=== PATIENT | male | born 1990 | race Two or more races ===

== ENCOUNTER 2017-12-15 12:12 | Day surgery (SDC) | payer SELFPAY ==
--- NOTE | 2017-12-15 13:31 | RADIOLOGY REPORT (SQ) ---
EXAM DESCRIPTION: HAND RIGHT 3 VIEWS COMPLETED DATE/TIME: 12/15/2017 1:20 pm REASON FOR STUDY: cut by skill saw COMPARISON: None. EXAM PARAMETERS: NUMBER OF VIEWS: Three views. TECHNIQUE: AP, lateral and oblique radiographic images acquired of the right hand. LIMITATIONS: None. FINDINGS: MINERALIZATION: Normal. BONES: There are comminuted fractures of the middle and distal phalanges of the right 5th digit cente red about the distal interphalangeal joint. JOINTS: No effusions. SOFT TISSUES: Laceration of the distal right 5th digit centered about the distal interphalangeal join t with punctuate radiopaque debris within the soft tissues. OTHER: No other significant finding. 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 This may reflect a combination of bone debris and foreign material. TECHNICAL DOCUMENTATION: JOB ID: [id number] [employer]- All Rights Reserved Reading location - IP/workstation name: [email or web address]
[2017-12-15] MEDS ORDERED: ONDANSETRON HCL INJ/PF 4 MG/2 ML SDV IV ONE (14:19)
[2017-12-15] MEDS ORDERED: MORPHINE SULFATE 10 MG/ML INJ IV ONE (14:19)
[2017-12-15] MEDS ORDERED: CEFTRIAXONE INJ 1000 MG VIAL IV ONE (14:39)
[2017-12-15] MEDS ORDERED: HYDROMORPHONE HCL INJ/PF 2 MG/ML AMPULE IV ONE (14:40)
--- NOTE | 2017-12-15 16:34 | ER Document Report ---
ED Hand/Wrist Injury - General Chief Complaint: Finger Injury Stated Complaint: FINGER INJURY Time Seen by Provider: 12/15/17 14:06 Notes: Patient sustained a laceration of his right fifth finger on his nondominant hand from a skill saw about 11 AM this morning. No other injuries or complaints. No other significant history. Complaining of severe pain. TRAVEL OUTSIDE OF THE U.S[place] IN LAST 30 DAYS: No - Related Data Allergies/Adverse Reactions: No Known Allergies Allergy (Verified 12/15/17 12:19) Past Medical History - Social History Smoking Status: Current Every Day Smoker Family History: Reviewed & Not Pertinent Patient has suicidal ideation: No Patient has homicidal ideation: No - Immunizations Hx Diphtheria, Pertussis, Tetanus Vaccination: - unk Review of Systems - Review of Systems Notes: REVIEW OF SYSTEMS: CONSTITUTIONAL : Denies fever. EENT: Denies eye, ear, nose or mouth or throat pain or other symptoms. CARDIOVASCULAR: Denies chest pain. RESPIRATORY: Denies cough, chest congestion, or shortness of breath. GASTROINTESTINAL: Denies abdominal pain or nausea, vomiting, or diarrhea. GENITOURINARY: Denies difficulty or painful urinating, urinary frequency, blood in urine. MUSCULOSKELETAL: Denies back or neck pain. See HPI. SKIN: Denies rash or skin lesions. See HPI. NEUROLOGICAL: Denies LOC or altered mental status. Denies headache. Denies sensory loss or motor deficits. ALL OTHER SYSTEMS REVIEWED AND NEGATIVE. Physical Exam - Vital signs Vitals: Temp Pulse Resp BP Pulse Ox 98.1 F 66 18 130/74 H 99 12/15/17 12:23 12/15/17 12:23 12/15/17 12:23 12/15/17 12:23 12/15/17 12:23 Interpretation: Normal - Notes Notes: PHYSICAL EXAMINATION: GENERAL: Well-appearing, in no acute distress. Right hand with bloody bandage. Vital signs are all essentially normal. HEAD: Atraumatic, normocephalic. EYES: Pupils equal round and reactive to light, extraocular movements intact. ENT: oropharynx clear without exudates. Moist mucous membranes. NECK: Normal range of motion, supple. LUNGS: Breath sounds clear and equal bilaterally. HEART: Regular rate and rhythm without murmurs. ABDOMEN: Soft, nontender. No guarding or rebound. No masses. BACK: No tenderness throughout entire back. EXTREMITIES: Patient has a deep laceration over the palmar aspect of the right fifth finger DIP. He has a laceration that starts at the base of the little finger, radial side and goes down and crosses over the middle palmar aspect of the fifth finger to an apex near the proximal nail on the ulnar side of the finger and then the laceration goes back somewhat dorsally to about the mid finger, completing a rather long narrow the shaped laceration. The distal pad of the distal segment of the little finger appears to be pale and not normal color like the other fingers and rest of the hand. Patient has no feeling from the DIP joint distally. NEUROLOGICAL: Normal speech, normal gait. Normal sensory, motor, and reflex exams. Awake, alert, and oriented x3. Cranial nerves normal. PSYCH: Normal mood, normal affect. SKIN: Warm, dry, no rashes. Course - Re-evaluation Re-evalutation: 12/15/17 16:33 I have spoken to the hand surgeon senior environmental consultant at [facility], Dr. Qureshi, who says that he does not do hand work, if there is a vascular component to the injury, but is on the schedule for technical reasons. I still have a call out to the vascular hand surgeon in [place], but have not had a call back from him yet. I never received a call back from the vascular hand surgeon whom I tried to reach, Dr. Mares. Transfer center in [place] recommended I try to do core [place]. I called [facility] and spoke with a Dr. Adamson who indicated that [place] is on divert so he cannot accept the patient but told me that he did not feel that the patient merited a vascular surgeon based upon my description of his wounds. Later, I was able to contact the hand senior environmental consultant for [facility] and likewise, he did not feel from a description that vascular surgery was necessary for this wound because of its distal location and the extensiveness of the injuries likely to result in loss of the tip of the finger anyway. Re-contacted Dr. Pimentel, our orthopedist senior environmental consultant, and he is going to come take the patient to the OR. - Vital Signs Vital signs: Temp Pulse Resp BP Pulse Ox 97.8 F 79 15 123/73 100 12/15/17 18:18 12/15/17 18:28 12/15/17 18:28 12/15/17 18:28 12/15/17 18:28 - Diagnostic Test Radiology results interpreted by me: 12/15/17 18:51 X-rays of the patient's finger shows a deep laceration in the skin on the palmar aspect of the DIP joint of the fifth finger. Both the distal middle phalanx and the proximal distal phalanx, at that site is fractured with multiple small pieces of bone in the tissues. Discharge - Discharge Clinical Impression: Laceration of little finger Condition: Stable Admitting Provider: Dr. Pimentel Unit Admitted: OR
[2017-12-15] MEDS ORDERED: ONDANSETRON HCL INJ/PF 4 MG/2 ML SDV ONE (16:53)
[2017-12-15] MEDS ORDERED: PROPOFOL INJ 200 MG/20 ML VIAL IV ONE (16:53)
[2017-12-15] MEDS ORDERED: HYDROMORPHONE HCL INJ/PF 2 MG/ML AMPULE ONE (16:53)
[2017-12-15] MEDS ORDERED: EPHEDRINE SULFATE INJ 50 MG/1 ML AMPULE ONE (16:53)
[2017-12-15] MEDS ORDERED: BACITRACIN INJ 50,000 UNIT VIAL ONE ×2 (17:04→17:28)
[2017-12-15] MEDS ORDERED: LIDOCAINE 1% INJ-PF (10 MG/ML) 30 ML SDV ONE (17:28)
[2017-12-15] MEDS ORDERED: BUPIVACAINE HCL 0.5 % INJ/PF 30 ML SDV ONE (17:28)
--- NOTE | 2017-12-15 17:31 | PDOC H&P ---
History of Present Illness History of Present Illness: KAMALJIT CASTELAN JR is a 27 year old male The patient is a 27-year-old [id number] male who presents with a skill saw injury to the right small finger. Past Medical History Cardiac Medical History: Reports: None Past Surgical History Past Surgical History: Reports: None Social History Information Source: Patient, [facility] Records Smoking Status: Unknown if Ever Smoked Family History Parental Family History Reviewed: No Children Family History Reviewed: No Sibling(s) Family History Reviewed.: No Medication/Allergy Home Medications: Cephalexin Monohydrate [Keflex 500 mg Capsule] 500 mg PO QID #20 capsule Oxycodone HCl/Acetaminophen [Percocet 5-325 mg Tablet] 1 tab PO Q6 #25 tab 12/15 Allergies/Adverse Reactions: No Known Allergies Allergy (Verified 12/15/17 12:19) Review of Systems All systems: as per [facility] Physical Exam Physical Exam: The patient is a young male accompanied by his significant other. He has tremors that I think arise from anxiety. The only injuries to the right hand. There is a volar injury that begins over the proximal phalanx and extends in a complex fashion and out to the distal phalanx. The subungual region has reasonable capillary refill. The tuft appears to be avascular. Sensory examination is difficult to assess because of the patient's anxiety and guarding. General appearance: PRESENT: mild distress, well-developed, well-nourished Head exam: PRESENT: normocephalic Respiratory exam: PRESENT: unlabored Cardiovascular exam: PRESENT: RRR Pulses: PRESENT: normal radial pulses Vascular exam: PRESENT: other - Subungual capillary refill is present on the right small finger GI/Abdominal exam: PRESENT: soft Rectal exam: PRESENT: deferred Extremities exam: PRESENT: other - As above. Complex laceration to the volar surface of the nondominant right small finger beginning in the region of the proximal phalanx and extending out to the distal phalanx. Neurological exam: PRESENT: alert, awake, oriented to person, oriented to place , oriented to time, oriented to situation, motor sensory deficit - ?? Psychiatric exam: PRESENT: anxious Skin exam: PRESENT: dry, intact, warm. ABSENT: cyanosis, rash Results Status: Imported from PACS Assessment & Plan - Diagnosis (1) Laceration of finger Qualifiers: Qualifiers: initial encounter Qualifiers: little finger Qualifiers: without damage Qualifiers: unspecified Qualifiers: right Qualifiers: [id number] Qualifiers: [id number] Is this a current diagnosis for this admission?: Yes Plan: 27-year-old male with a right small finger laceration on the volar surface beginning of the proximal phalanx extending to the distal phalanx. Involvement of tendon structures and/or neurovascular structures are uncertain at this point. Plan will be for irrigation debridement exploration of the wound and limited closure. If tendon lacerations and/or neurovascular lacerations are identified these can be addressed later. There is some question about the vascular supply to the tuft of the finger and whether or not this will survive. All this discussed with the patient and his significant other. - Time Time Spent: 50 to 70 Minutes Critical Time spent with patient: 15-24 minutes Anticipated discharge: Home Within: within 24 hours
[2017-12-15] MEDS ORDERED: DIPHENHYDRAMINE HCL 50 MG/ML VIAL IV PRN (17:55)
[2017-12-15] MEDS ORDERED: MEPERIDINE HCL/PF INJ 25 MG/1 ML DISP.SYRIN IV PRN (17:55)
[2017-12-15] MEDS ORDERED: FENTANYL CITRATE INJ/PF 100 MCG/2 ML AMPUL IV PRN ×3 (17:55)
--- NOTE | 2017-12-15 18:11 | Discharge Summary ---
Discharge Summary (SDC) - Discharge Final Diagnosis: Open fracture right small finger Date of Surgery: 12/15/17 Discharge Date: 12/15/17 Condition: Stable Discharge Diet: As Tolerated, Regular Discharge Activity: Balance Activity w/Rest Home Care Assistance: None Needed Report the Following to Your Physician Immediately: Shortness of Breath, Fever over 101 Degrees, Drainage-Foul Smelling
--- NOTE | 2017-12-15 18:13 | Operative Report ---
Operative Report DATE OF SURGERY: 12/15/17 PREOPERATIVE DIAGNOSIS: Complex laceration and open fracture right small finger OPERATION: Irrigation debridement complex wound closure SURGEON: LUCILLE ESCOBAR ANESTHESIA: GA TISSUE REMOVED OR ALTERED: Skin, fascial tissue, adipose tissue to pathology ESTIMATED BLOOD LOSS: Minimal PROCEDURE: With the patient on the operative table the right upper extremity is pre- scrubbed and then prepped and draped in a sterile fashion. The wound edges are explored and debrided meticulously. Neurovascular bundle along the radial aspect of the small finger appears to extend out to the PIP joint but then is not identifiable after that. Laterally the neurovascular bundles difficult call to assess. Both the FDS and FDP are intact. He with normal saline containing bacitracin and bulb lavage. The skin edges are then approximated using interrupted nylon. A sterile compressive dressing is applied and the patient's return to PACU in satisfactory condition.
[2017-12-15] MEDS ORDERED: OXYCODONE-ACETAMINOPHEN 5-325 MG TABLET PO PRN (18:53)
[2017-12-15] MEDS ORDERED: METOCLOPRAMIDE HCL INJ/PF 10 MG/2 ML SDV ONE (19:43)
[2017-12-15 20:24] VITALS: BP 106/64
== END 2017-12-15 20:22 | disposition home or self-care (01) ==
LOC: ER 12:12 → OROUT 17:00
PROVIDERS: ATTEND Orthopaedic Surgery
DX: S62.636B Displaced fracture of distal phalanx of right little finger, initial encounter for open fracture (principal); S62.616B Displaced fracture of proximal phalanx of right little finger, initial encounter for open fracture; W31.2XXA Contact with powered woodworking and forming machines, initial encounter; F17.210 Nicotine dependence, cigarettes, uncomplicated
CPT/HCPCS: 99285; 96375; 96365; 73130; 26080; J3490 ×3; J2765; J2270; J1170; J0696; J2405; J2704; 01810

== ENCOUNTER 2018-01-04 05:57 | Day surgery (SDC) | payer OTHER ==
[~2018-01-04 05:57] MED LIST: CEFAZOLIN 2 GM/D5W RTU 2 GM/50 ML RTUPB IV ONE; CEFAZOLIN 2 GM/D5W RTU 2 GM/50 ML RTUPB IV PRN
[2018-01-04 06:39] LABS: ABSOLUTE BASOPHILS # (AUTO) 0.1 10^3/uL (0.0-0.2); ABSOLUTE EOSINOPHILS # (AUTO) 0.1 10^3/uL (0.0-0.6); ABSOLUTE MONOCYTES (AUTO) 0.5 10^3/uL (0.1-1.4); ABSOLUTE NEUT (AUTO) 4.6 10^3/uL (1.7-8.2); BASOPHILS % (AUTO) 0.9 % (0-2); EOSINOPHILS % (AUTO) 1.2 % (0-6); HEMATOCRIT 42.6 % (37.9-51.0); HEMOGLOBIN 14.4 g/dL (13.5-17.0); LYMPHOCYTES % (AUTO) 27.2 % (13-45); MEAN CORPUSCULAR HEMOGLOBIN 30.4 pg (27.0-33.4); MEAN CORPUSCULAR HGB CONC 33.9 g/dL (32.0-36.0); MEAN CORPUSCULAR VOLUME 90 fl (80-97); MONOCYTES % (AUTO) 7.5 % (3-13); PLATELET COUNT 249 10^3/uL (150-450); RED BLOOD COUNT 4.75 10^6/uL (4.35-5.55); RED CELL DISTRIBUTION WIDTH 13.1 % (11.5-14.0); SEGMENTED NEUTROPHILS % (AUTO) 63.2 % (42-78); TOTAL CELLS COUNTED % (AUTO) 100 %; WHITE BLOOD COUNT 7.2 10^3/uL (4.0-10.5)
[2018-01-04] MEDS ORDERED: LIDOCAINE 0.5% INJ-PF (5 MG/ML) 50 ML SDV ONE (07:18)
[2018-01-04] MEDS ORDERED: FENTANYL CITRATE INJ/PF 100 MCG/2 ML AMPUL ONE (07:38)
[2018-01-04] MEDS ORDERED: PROPOFOL INJ 200 MG/20 ML VIAL IV ONE (07:38)
[2018-01-04] MEDS ORDERED: MIDAZOLAM 2 MG/2 ML INJ ONE (07:38)
[2018-01-04] MEDS ORDERED: ACETAMINOPHEN 1,000 MG/100 ML RTUPB IV ONE (07:38)
[2018-01-04] MEDS ORDERED: BUPIVACAINE HCL 0.5 % INJ/PF 30 ML SDV ONE (07:56)
[2018-01-04] MEDS ORDERED: OXYCODONE-ACETAMINOPHEN 5-325 MG TABLET PO PRN ×2 (08:09)
[2018-01-04] MEDS ORDERED: ONDANSETRON HCL INJ/PF 4 MG/2 ML SDV IV PRN (08:09)
[2018-01-04] MEDS ORDERED: DIPHENHYDRAMINE HCL 50 MG/ML VIAL IV PRN (08:09)
[2018-01-04] MEDS ORDERED: PROMETHAZINE HCL INJ 25 MG/1 ML VIAL IV PRN ×2 (08:09)
[2018-01-04] MEDS ORDERED: FENTANYL CITRATE INJ/PF 100 MCG/2 ML AMPUL IV PRN ×3 (08:09)
[2018-01-04] MEDS ORDERED: MORPHINE SULFATE 10 MG/ML INJ IV PRN (08:09)
[2018-01-04] MEDS ORDERED: MEPERIDINE HCL/PF INJ 25 MG/1 ML DISP.SYRIN IV PRN (08:09)
--- NOTE | 2018-01-04 08:25 | Discharge Summary ---
Discharge Summary (SDC) - Discharge Final Diagnosis: Right distal small finger ischemic necrosis Date of Surgery: 01/04/18 Discharge Date: 01/04/18 Condition: Good Treatment or Instructions: Elevate right upper extremity, keep the dressing clean dry and intact. Prescriptions: Oxycodone HCl/Acetaminophen [Percocet 5-325 mg Tablet] 1 tab PO Q6 PRN #40 tablet PRN Reason: Discharge Diet: As Tolerated, Regular Respiratory Treatments at Home: Deep Breathing/Coughing Discharge Activity: Activity As Tolerated Home Care Assistance: None Needed Report the Following to Your Physician Immediately: Shortness of Breath, Fever over 101 Degrees, Drainage-Foul Smelling
--- NOTE | 2018-01-04 08:27 | Operative Report ---
Operative Report DATE OF SURGERY: 01/04/18 PREOPERATIVE DIAGNOSIS: Right small finger distal ischemic necrosis OPERATION: Right small finger PIP disarticulation SURGEON: LUCILLE ESCOBAR ANESTHESIA: LMAC TISSUE REMOVED OR ALTERED: Distal right small finger to pathology ESTIMATED BLOOD LOSS: Minimal PROCEDURE: With the patient on the operating table a digital block is placed in the right small finger. The hand is then pre-scrubbed using chlorhexidine scrub brush. Its then prepped and draped using chlorhexidine prep stick. A fishmouth incision is made proximal to the ischemic portion of the digit around the PIP joint. Sharp dissection was carried incision down to the PIP joint. This was disarticulated. The wound is irrigated. Hemostasis obtained with bipolar cautery. The wound is then reapproximated with interrupted 4-0 nylon. A sterile compressive dressing is applied and the patient's return to PACU in satisfactory condition.
[2018-01-04] MEDS: FENTANYL CITRATE INJ/PF 100 MCG/2 ML AMPUL ONE ×2 (08:42→08:46)
[2018-01-04] MEDS ORDERED: OXYCODONE-ACETAMINOPHEN 5-325 MG TABLET ONE (09:20)
[2018-01-04 12:07] VITALS: BP 120/65
== END 2018-01-04 10:20 | disposition home or self-care (01) ==
LOC: OROUT 05:57
PROVIDERS: ATTEND Orthopaedic Surgery
PROC: 0X6V0Z3 Detachment at Right Little Finger, Low, Open Approach (ICD-10-PCS; principal; 2018-01-04 08:15)
DX: M87.9 Osteonecrosis, unspecified (principal)
CPT/HCPCS: 36415; 85025; 88305 ×2; 88311; 26951; J2250; J3490 ×2; J3010; J2704; J0690; J0131; 1830

== ENCOUNTER 2019-11-29 07:29 | Emergency (ER) | payer SELFPAY ==
[2019-11-29 07:42] VITALS: BP 126/79
--- NOTE | 2019-11-29 08:07 | ER Document Report ---
HPI - HPI Time Seen by Provider: 11/29/19 08:06 Pain Level: Denies Context: Patient is a 22-year-old male with no known past medical history who presents emergency department wanting to be tested for COVID-19. Patient states that a coworker tested positive for COVID-19. The past 4 days, the patient has had diarrhea, congestion, and one bout of vomiting. States that the symptoms are not that bad. States that his boss wants him tested for COVID-19. Patient also reports that he felt "feverish" 1 day, but felt better after taking Motrin. Denies any melena stool. - ROS Systems Reviewed and Negative: Yes All other systems reviewed and negative - CONSTITUTIONAL Constitutional: REPORTS: Fever - Subjective - EENT EENT: REPORTS: Nasal Drainage-Clear, Congestion. DENIES: Sore Throat, Ear Pain, Nasal Drainage-Purulent, Eye problems - NEURO Neurology: DENIES: Headache, Weakness - CARDIOVASCULAR Cardiovascular: DENIES: Chest pain - RESPIRATORY Respiratory: REPORTS: Coughing - GASTROINTESTINAL Gastrointestinal: REPORTS: Patient vomiting - One-time, Diarrhea. DENIES: Abdominal Pain, Nausea - URINARY Urinary: DENIES: Dysuria - MUSCULOSKELETAL Musculoskeletal: DENIES: Extremity pain - DERM Skin Color: Normal Skin Problems: None Past Medical History - Social History Smoking Status: Current Every Day Smoker Chew tobacco use (# tins/day): No Frequency of alcohol use: Occasional Drug Abuse: None Family History: Reviewed & Not Pertinent Patient has homicidal ideation: No - Past Medical History Cardiac Medical History: Denies: Hx Coronary Artery Disease, Hx Heart Attack, Hx Hypertension Pulmonary Medical History: Denies: Hx Asthma, Hx Bronchitis, Hx COPD, Hx Pneumonia Neurological Medical History: Denies: Hx Cerebrovascular Accident, Hx Seizures Renal/ Medical History: Denies: Hx Peritoneal Dialysis Musculoskeletal Medical History: Denies Hx Arthritis - Immunizations Hx Diphtheria, Pertussis, Tetanus Vaccination: Yes Vertical Provider Document - CONSTITUTIONAL Agree With Documented VS: Yes Exam Limitations: No Limitations General Appearance: No Apparent Distress - INFECTION CONTROL TRAVEL OUTSIDE OF THE [place] IN LAST 30 DAYS: No - HEENT HEENT: Atraumatic, Normocephalic, PERRLA. negative: Conjuctival Injection, Pharyngeal Exudate, Pharyngeal Tenderness, Pharyngeal Erythema Notes: Clear rhinorrhea noted - NECK Neck: Normal Inspection - RESPIRATORY Respiratory: Breath Sounds Normal, No Respiratory Distress - CARDIOVASCULAR Cardiovascular: Regular Rate, Regular Rhythm Pulses: Normal: Radial - GI/ABDOMEN Gastrointestinal: Abdomen Soft, Abdomen Non-Tender - MUSCULOSKELETAL/EXTREMETIES Musculoskeletal/Extremeties: FROM - NEURO Level of Consciousness: Awake, Alert, Appropriate Motor/Sensory: No Motor Deficit, No Sensory Deficit - DERM Integumentary: Warm, Dry, No Rash Course - Re-evaluation Re-evalutation: 11/29/19 08:06 The patient was evaluated during the global COVID-19 pandemic and that diagnosis was suspected/considered upon their initial presentation. Their evaluation, treatment and testing was consistent with current guidelines for patients who present with complaints or symptoms that may be related to COVID-19. - Vital Signs Vital signs: Temp Pulse Resp BP Pulse Ox 97.8 F 61 20 126/79 H 98 11/29/19 07:37 11/29/19 07:37 11/29/19 07:37 11/29/19 07:37 11/29/19 07:37 Discharge - Discharge Clinical Impression: Suspected COVID-19 virus infection Condition: Stable Disposition: HOME, SELF-CARE Instructions: COVID-19 Guidance for Persons Under Investigation Additional Instructions: As a person under investigation for COVID-19, the [place] Department of Health and Human Services (division on public health) advises you to adhere to the following guidance until your test results are reported to you. If your test result is positive, you will receive additional information from your provider and your local health department at that time. Remain at home until you are cleared by the health provider or public health authorities. Keep a log of visitors to your home, notify any visitors to your home of your isolation status. If you plan to move to a new address or leave the [facility], notify the local health department in your County. Call your Doctor or seek care if you have an urgent medical need. Before seeking medical care, call him to get instructions from the provider before arriving at the medical office, clinic, or hospital. Notify them that you are being tested for the virus (COVID-19) so that arrangements can be made, as necessary, to prevent transmission to others in the healthcare setting. Next, notify the local health department in your county. For the Zofran, take 1 tablet every 4-6 hours as needed for nausea or vomiting.
[2019-11-29] MEDS ORDERED: ONDANSETRON ODT 4 MG TAB (6 TAB/ER DISP) PO PRN (08:37)
== END 2019-11-29 09:03 | disposition home or self-care (01) ==
LOC: ER 07:29
DX: R50.9 Fever, unspecified (principal); R19.7 Diarrhea, unspecified; R05 Cough; R09.81 Nasal congestion; R09.89 Other specified symptoms and signs involving the circulatory and respiratory systems; Z20.828 Contact with and (suspected) exposure to other viral communicable diseases; F17.200 Nicotine dependence, unspecified, uncomplicated
CPT/HCPCS: 99283; 87635; C9803

== ENCOUNTER 2019-12-09 10:49 | Emergency (ER) | payer SELFPAY ==
[2019-12-09] MEDS ORDERED: PREDNISONE 20 MG TABLET PO ONE (11:09)
[2019-12-09] MEDS ORDERED: NAPROXEN 250 MG TABLET PO ONE (11:10)
--- NOTE | 2019-12-09 11:10 | ER Document Report ---
HPI - HPI Patient complains to provider of: cough, ST Time Seen by Provider: 12/09/19 11:04 Notes: 29-year-old male to the emergency department with complaints of at least 2 weeks of cough, sore throat, nasal congestion. He states that he was seen here in November 28 for the same complaints and tested negative for coronavirus. He states his symptoms continue. He is not been taking anything for symptoms. Denies any fevers or chills. States his throat hurts predominantly when he is swallowing. He denies any sick contacts. He does smoke. States his most significant symptom is a sore throat. - CONSTITUTIONAL Constitutional: DENIES: Fever, Chills - EENT EENT: REPORTS: Sore Throat, Congestion. DENIES: Ear Pain - NEURO Neurology: DENIES: Headache, Weakness, Vision blurred, Dizzinesss / Vertigo - CARDIOVASCULAR Cardiovascular: DENIES: Chest pain - RESPIRATORY Respiratory: REPORTS: Coughing. DENIES: Trouble Breathing - GASTROINTESTINAL Gastrointestinal: DENIES: Abdominal Pain, Nausea, Patient vomiting, Diarrhea - MUSCULOSKELETAL Musculoskeletal: DENIES: Extremity pain, Back Pain, Neck Pain, Swelling - DERM Skin Color: Normal Skin Problems: None Past Medical History - General Information source: Patient - Social History Smoking Status: Current Every Day Smoker Frequency of alcohol use: Social Drug Abuse: None Family History: Reviewed & Not Pertinent - Past Medical History Cardiac Medical History: Denies: Hx Coronary Artery Disease, Hx Heart Attack, Hx Hypertension Pulmonary Medical History: Denies: Hx Asthma, Hx Bronchitis, Hx COPD, Hx Pneumonia Neurological Medical History: Denies: Hx Cerebrovascular Accident, Hx Seizures Renal/ Medical History: Denies: Hx Peritoneal Dialysis Musculoskeletal Medical History: Denies Hx Arthritis - Immunizations Hx Diphtheria, Pertussis, Tetanus Vaccination: Yes Vertical Provider Document - CONSTITUTIONAL Exam Limitations: No Limitations General Appearance: WD/WN, No Apparent Distress - INFECTION CONTROL TRAVEL OUTSIDE OF THE [place] IN LAST 30 DAYS: No - HEENT HEENT: Atraumatic, Normocephalic, PERRLA Notes: TMs are clear bilaterally. There is erythema in the posterior oropharynx without exudate. There is no evidence for peritonsillar abscess. There is no drooling or muffled voice. There is no Pascual's angina. Airway is grossly patent. There is no tender lymphadenopathy. - NECK Neck: Normal Inspection, Supple - RESPIRATORY Respiratory: Breath Sounds Normal, No Respiratory Distress. negative: Rales, Rhonchi, Wheezing - CARDIOVASCULAR Cardiovascular: Regular Rate, Regular Rhythm, No Murmur - GI/ABDOMEN Gastrointestinal: Abdomen Soft, Abdomen Non-Tender, No Organomegaly - MUSCULOSKELETAL/EXTREMETIES Musculoskeletal/Extremeties: MAEW, FROM, Non-Tender - NEURO Level of Consciousness: Awake, Alert, Appropriate Motor/Sensory: No Motor Deficit, No Sensory Deficit - DERM Integumentary: Warm, Dry, No Rash Course - Re-evaluation Re-evalutation: 12/09/19 Impression: Viral upper respiratory syndrome. No pneumonia, no strep, no mono. Had a negative Covid on November 28. Patient is nontoxic in appearance. Will send home with steroid to help calm down his throat and his chest as well as cough medicine. Patient agrees with the plan. Encouraged to return if worse. - Vital Signs Vital signs: Temp Pulse Resp BP Pulse Ox 97.6 F 68 18 134/74 H 97 12/09/19 10:53 12/09/19 10:53 12/09/19 10:53 12/09/19 10:53 12/09/19 10:53 Discharge - Discharge Clinical Impression: Cough Upper respiratory infection Qualifiers: URI type: unspecified URI Qualified Code(s): J06.9 - Acute upper respiratory infection, unspecified Pharyngitis Qualifiers: Pharyngitis/tonsillitis etiology: unspecified etiology Qualified Code(s): J02.9 - Acute pharyngitis, unspecified Condition: Stable Disposition: HOME, SELF-CARE Instructions: Upper Respiratory Illness ([facility]) Additional Instructions: Today your strep test was negative as well as your mono screen. Your chest x- ray was clear with no pneumonia. This is likely a viral upper respiratory syndrome. It needs to predominantly run its course. He will be sent home with some steroids to help calm down the sore throat and your cough. As well as cough medicine. Return if worsening symptoms. Follow-up with primary care. Prescriptions: Benzonatate [Tessalon Perles 100 mg Capsule] 100 mg PO Q8HP PRN #40 capsule PRN Reason: Prednisone [Deltasone 20 mg Tablet] 40 mg PO DAILY #10 tablet Forms: Return to Work Referrals: [facility] [Provider Group] - Follow up as needed [facility] [Provider Group] - Follow up as needed
--- NOTE | 2019-12-09 12:07 | RADIOLOGY REPORT (SQ) ---
EXAM DESCRIPTION: CHEST 2 VIEWS IMAGES COMPLETED DATE/TIME: 12/09/2019 11:52 am REASON FOR STUDY: cough for several weeks, covid neg 11/29/19 COMPARISON: None. EXAM PARAMETERS: NUMBER OF VIEWS: two views TECHNIQUE: Digital Frontal and Lateral radiographic views of the chest acquired. RADIATION DOSE: NA LIMITATIONS: none FINDINGS: LUNGS AND PLEURA: No opacities, masses or pneumothorax. No pleural effusion. MEDIASTINUM AND HILAR STRUCTURES: No masses or contour abnormalities. HEART AND VASCULAR STRUCTURES: Heart normal size. No evidence for failure. BONES: No acute findings. HARDWARE: None in the chest. OTHER: No other significant finding. IMPRESSION: NO ACUTE RADIOGRAPHIC FINDING IN THE CHEST. TECHNICAL DOCUMENTATION: JOB ID: [id number] 2010 [employer]- All Rights Reserved Reading location - IP/workstation name: [email or web address]
[2019-12-09 12:30] VITALS: BP 135/77
== END 2019-12-09 12:26 | disposition home or self-care (01) ==
LOC: ER 10:49
DX: J06.9 Acute upper respiratory infection, unspecified (principal); R05 Cough; J02.9 Acute pharyngitis, unspecified; R09.81 Nasal congestion; F17.200 Nicotine dependence, unspecified, uncomplicated
CPT/HCPCS: 99284; 36415; 87070; 87880; 86308; 71046; J7512

== ENCOUNTER 2020-01-21 07:57 | Emergency (ER) | payer SELFPAY ==
--- NOTE | 2020-01-21 09:59 | RADIOLOGY REPORT (SQ) ---
EXAM DESCRIPTION: SHOULDER RIGHT 2 OR MORE VIEWS IMAGES COMPLETED DATE/TIME: 01/21/2020 9:19 am REASON FOR STUDY: possible shoulder injury COMPARISON: None. NUMBER OF VIEWS: Three views. TECHNIQUE: Internal rotation, external rotation, and Y view images acquired of the right shoulder. LIMITATIONS: None. FINDINGS: MINERALIZATION: Normal. BONES: No acute fracture. No worrisome bone lesions. JOINTS: No dislocation. VISUALIZED LUNGS AND RIBS: No pneumothorax. No rib fracture. SOFT TISSUES: No radiopaque foreign body. OTHER: No other significant finding. IMPRESSION: NEGATIVE STUDY OF THE RIGHT SHOULDER. NO RADIOGRAPHIC EVIDENCE OF ACUTE INJURY. TECHNICAL DOCUMENTATION: JOB ID: [id number] 2010 [employer]- All Rights Reserved Reading location - IP/workstation name: [email or web address]
--- NOTE | 2020-01-21 10:30 | ER Document Report ---
ED General - General Chief Complaint: Shoulder Injury Stated Complaint: SHOULDER PAIN TRAVEL OUTSIDE OF THE [place] IN LAST 30 DAYS: No - HPI Notes: Chief Complaint: Right shoulder pain Historian: History obtained from patient HPI: This is a 21-year-old male presents to the ED complaining of right shoulder pain x3 days. Denies any specific injury or trauma. 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 Pain is nonradiating and worse with movement. Denies range of motion or sensory deficit to right upper extremity. No treatments tried. ROS: Constitutional: no fevers. HEENT: no WEN, sore throat, or vision changes. CV: no chest pain or palpitations. Resp: no cough or SOB. GI: no abdominal pain, or n/v/d. : no dysuria, hematuria, or incont. MSK: right shoulder pain Skin: no rashes or itching. Neuro: no seizures, weakness, numbness, or confusion. Hematological: no ecchymosis or easy bleeding. Endocrine: no polyuria/polydipsia, no heat/cold intolerance. Psych: no SI/HI, AH/VH or memory loss. PMHx: Reviewed and agree as charted by RN. PSHx: Reviewed and agree as charted by RN. SOCHx: Reviewed and agree as charted by RN. FHX: No significant familial comorbid conditions directly related to patient complaint Current Medications: Reviewed and agree with the patient medications as charted by the RN. Allergies: Reviewed and agree with the listed allergies as charted by the RN Physical Exam: Vitals: Reviewed in chart as documented by RN. General: Alert and in NAD. Head: Normocephalic; atraumatic Eyes: PERRLA, Conjunctivae clear sclerae non-icteric bilat ENT: no soft palate swelling or uvular deviation Neck: trachea midline, no unilateral swelling/tenderness/lymphadenopathy CV: RRR, no M/R/G; symmetric distal pulses Resp: respirations even and unlabored, CTA bilat. GI: abd soft and nondistended. NTTP. normal BS. no masses/HSM. no CVAT bilat MSK: RUE- shoulder- tender to AC joint w/ mild swelling, no erythema or deformity. no subacromial tenderness. no SITS muscle tenderness. No shoulder joint swelling, deformity, or erythema. FROM of shoulder. inc pain w/ extension. able to abduct beyond 90 degrees. neg drop arm radial pulse 2+ cap refill <3 sec sensory intact distally. Skin: warm, moist, good turgor. no rash/lesions Neuro: Alert and oriented X 4. following CN 2-12 intact. no unilateral weakness/numbness Psych: No SI/HI or AH/VH. ED Results: Medical Decision-Making: Medical Decision-making/Differential Diagnosis: Consider various etiologies including but not limited to skin/soft tissue structure injury, MSK injury, strain/sprain, fracture, dislocation, bursitis, tendonitis, contusion, ect Plan- shoulder XR. imaging reviewed and negative. pts symptoms most likely related to AC sprain/AC inflammation vs bursitis. no signs of fracture/dislocation or septic joint. pt is NV intact. will d/c home w/ steroids and anti inflamm. no heavy lifting w/ RUE, encouraged PROM. ortho referral given for f/u. return factors discussed. This course of action was discussed with the patient and/or family. They were amenable to this, verbalized understanding, and were without further questions. - Related Data Allergies/Adverse Reactions: No Known Allergies Allergy (Verified 01/21/20 08:53) Past Medical History - Social History Smoking Status: Current Every Day Smoker Chew tobacco use (# tins/day): No Frequency of alcohol use: None Drug Abuse: None Family History: Reviewed & Not Pertinent Patient has homicidal ideation: No - Past Medical History Cardiac Medical History: Denies: Hx Coronary Artery Disease, Hx Heart Attack, Hx Hypertension Pulmonary Medical History: Denies: Hx Asthma, Hx Bronchitis, Hx COPD, Hx Pneumonia Neurological Medical History: Denies: Hx Cerebrovascular Accident, Hx Seizures Renal/ Medical History: Denies: Hx Peritoneal Dialysis Musculoskeletal Medical History: Denies Hx Arthritis - Immunizations Hx Diphtheria, Pertussis, Tetanus Vaccination: Yes Physical Exam - Vital signs Vitals: Temp Pulse Resp BP Pulse Ox 98 F 93 16 140/86 H 80 L 01/21/20 08:03 01/21/20 08:03 01/21/20 08:03 01/21/20 08:03 01/21/20 08:03 Course - Vital Signs Vital signs: Temp Pulse Resp BP Pulse Ox 98 F 93 16 140/86 H 80 L 01/21/20 08:03 01/21/20 08:03 01/21/20 08:03 01/21/20 08:03 01/21/20 08:03 - Laboratory Results Critical Laboratory Results Reviewed: No Critical Results - Radiology Results Critical Radiology Results Reviewed: No Critical Results Discharge - Discharge Clinical Impression: Right shoulder pain Qualifiers: Chronicity: acute Qualified Code(s): M25.511 - Pain in right shoulder Condition: Stable Disposition: HOME, SELF-CARE Instructions: Shoulder Injury ([facility]) Additional Instructions: take medications as prescribed. no heavy lifting with right shoulder. do shoulder range of motion to avoid frozen shoulder. call and schedule follow up appointment w/ orthopedics. return to the ER if your condition worsens. Prescriptions: Ketorolac Tromethamine [Toradol 10 mg Tablet] 10 mg PO Q6HP PRN #15 tablet PRN Reason: Prednisone [Deltasone 20 mg Tablet] 3 tab PO DAILY 5 Days #15 tablet Forms: Return to Work Referrals: RICKEY BUSH DO [ACTIVE STAFF] - Follow up as needed
[2020-01-21 11:10] VITALS: BP 140/83
== END 2020-01-21 11:10 | disposition home or self-care (01) ==
LOC: ER 07:57
DX: M25.511 Pain in right shoulder (principal); F17.200 Nicotine dependence, unspecified, uncomplicated
CPT/HCPCS: 99283